=== PATIENT | female | born 1985 | race Caucasian/White ===

== ENCOUNTER 2020-04-07 12:07 | Outpatient (CLI) | payer MEDICAID ==
[2020-04-07] MEDS ORDERED: GADOTERATE 10 MMOL/20 ML VIAL ONE (13:24)
== END 2020-04-07 23:59 | disposition home or self-care (01) ==
LOC: RAD 12:07
PROVIDERS: ATTEND Internal Medicine
DX: M51.84 Other intervertebral disc disorders, thoracic region (principal); M51.86 Other intervertebral disc disorders, lumbar region; M48.07 Spinal stenosis, lumbosacral region; G60.8 Other hereditary and idiopathic neuropathies; J34.1 Cyst and mucocele of nose and nasal sinus; R20.0 Anesthesia of skin; R90.82 White matter disease, unspecified
CPT/HCPCS: 70553; 72157; 72158; A9575